=== PATIENT | female | born 1965 | race Caucasian/White ===

== ENCOUNTER 2021-04-27 17:41 | Inpatient (IN) | payer BC, OTHER ==
[2021-04-27] MEDS ORDERED: ACETAMINOPHEN 500 MG TAB PO PRN (21:07)
[2021-04-27] MEDS ORDERED: ENOXAPARIN 80 MG/0.8 ML SQ ONE ×2 (21:12→21:27)
[2021-04-27] MEDS ORDERED: ASPIRIN 81 MG CHEWABLE TABLET ONE (21:21)
[2021-04-27] MEDS ORDERED: ATORVASTATIN 20 MG TAB ONE (21:24)
[2021-04-27] MEDS ORDERED: METOPROLOL TAR 50 MG TAB ONE (21:24)
[2021-04-27] MEDS ORDERED: AMLODIPINE 5 MG TAB ONE (21:24)
[2021-04-27] MEDS ORDERED: GABAPENTIN 300 MG CAP ONE (21:25)
[2021-04-27 21:48] LABS: Absolute Lymphocytes (CBC) 3.4 K/uL (0.7-4.9); Hematocrit 40.6 % (36.0-45.0); MPV 9.9 fL (7.6-11.3); RBC Red Blood Cell Count 4.67 M/uL (3.86-4.86)
[2021-04-27 21:59] VITALS: BMI 40.1
[2021-04-27] MEDS: METOPROLOL TAR 50 MG TAB PO SCH (22:01)
[2021-04-27] MEDS: GABAPENTIN 300 MG CAP PO SCH (22:01)
[2021-04-27] MEDS: ASPIRIN 81 MG CHEWABLE TABLET PO SCH (22:01)
[2021-04-27] MEDS: ATORVASTATIN 20 MG TAB PO SCH (22:02)
[2021-04-27] MEDS: AMLODIPINE 5 MG TAB PO SCH (22:03)
[2021-04-27 22:24] LABS: ALT/SGPT 80 U/L (12-78); AST/SGOT 41 U/L (15-37); Albumin 3.7 g/dL (3.4-5.0); Alkaline Phosphatase 121 U/L (45-117); BUN Blood Urea Nitrogen 19 mg/dL (7-18); Bicarbonate 32 mmol/L (21-32); Bilirubin Total 0.6 mg/dL (0.2-1.0); Creatine Phosphokinase 60 U/L (26-192); Glucose Level 125 mg/dL (74-106); Potassium 4.2 mmol/L (3.5-5.1); Protein, Total 7.5 g/dL (6.4-8.2); Sodium Level 140 mmol/L (136-145)
[2021-04-27 22:32] LABS: CKMB Creatine Kinase MB < 1.0 ng/mL (1.0-3.6)
--- OUTSIDE RECORDS SUMMARY | 2021-04-28 01:16 | XMS REPORT | Continuity of Care Document ---
:1965 Author Organization [facility] t Address [address] [place] [address] Dr. [address] [place] [address] Care Team Providers Name Role Phone GC_SWHAWPRC_Lotze_P Attending Clinician Unavailable GC_SWHAOMC_Anding_R Attending Clinician Unavailable Antonia Gaona Attending Clinician [phone] Favio Rubin Attending Clinician [phone] Willem Eubanks Attending Clinician [phone] GC_SWHATBIC_Anding_R Attending Clinician Unavailable Lab, Fam Pob I Attending Clinician Unavailable Flory GARCÍA Attending Clinician FLORY Attending Clinician Unavailable Alfred LALA, López Attending Clinician Unavailable Only, Test Attending Clinician Unavailable Tru GARCÍA, Jim Attending Clinician TRU, Jim Attending Clinician Unavailable Doctor Unassigned, Name Attending Clinician Unavailable GC_SWHAWPRC_Lotze_P Admitting Clinician Unavailable GC_SWHAOMC_Anding_R Admitting Clinician Unavailable GC_SWHATBIC_Anding_R Admitting Clinician Unavailable Payers Payer Name Policy Type Policy Number Effective Date Expiration Date Daniel dubon [facility]: [id number] 2016 00:00:00 [facility] Problems This patient has no known problems. Allergies, Adverse Reactions, Alerts Allergy Allergy Status Severity Reaction(s) Onset Inactive Treating Comm ents Source Name Type Date Date Clinician NO KNOWN Drug Active Univers ALLERGIE Class ity [facility] Medical [place] Social History Social Habit Start Date Stop Date Quantity Comments Source Exposure to Not sure [facility] SARS-CoV-2 (event) Medica l Branch Sex Assigned At [birth year] [facility] 00:00:00 00:00:00 Medical Branch Smoking Status Start Date Stop Date Source Unknown if ever smoked [facility] Medical Branch Medications This patient has no known medications. Procedures Procedure Date / Time Performed Performing Clinician Sour e ASSIGNMENT OF BENEFITS 2020-07-11 20:28:24 Doctor Unassigned, No [facility] Name Medical Branch Encounters Start End Encounter Admission Attending Care Care Encounter Source Date/Time Date/Time Type Type Clinicians Facility Department ID 2021-04-04 2021-04-04 Outpatient GC_S[facility]AWPRC PRIV PRIV [id number] [facility] 03:07:00 03:07:00 _Lotze_P [id number] Medic al 2021-03-30 2021-03-30 Outpatient GC_[facility]AWPR[facility] PRIV PRIV [id number] [facility] 05:47:00 05:47:00 _Lotze_P [id number] Medic al 2021-03-27 2021-03-27 Outpatient GC_SWHAOMC_ PRIV PRIV [id number] [facility] 04:01:00 04:01:00 Anding_R [id number] Medic al 2021-03-26 2021-03-26 Outpatient GC_SWHAWPRC PRIV PRIV [id number] [facility] 06:02:00 06:02:00 _Lotze_P [id number] Medic al 2021-03-26 2021-03-26 Outpatient Gaona, PRIV PRIV [id number] 00:00:00 00:00:00 Zakia Antonia [id number] 2021-03-26 2021-03-26 Outpatient Gaona, PRIV PRIV [id number] 00:00:00 00:00:00 Zakia Knight [id number] 2021-03-26 2021-03-26 Outpatient Anding, PRIV PRIV [id number] 00:00:00 00:00:00 Myron [id number] Favio [id number] 2021-03-26 2021-03-26 Outpatient Lotze, PRIV PRIV [id number] 00:00:00 00:00:00 Dirk [id number] Willem [id number] 2021-03-25 2021-03-25 Outpatient GC_SWHATBIC PRIV PRIV [id number] [facility] 02:31:00 02:31:00 _Anding_R [id number] Medi laquita 2021-03-24 2021-03-24 Outpatient GC_[facility]AW[facility] PRIV PRIV [id number] [facility] 04:44:00 04:44:00 _Lotze_P [id number] Medic al 2021-03-12 2021-03-12 Outpatient GC_SWHAWPRC PRIV PRIV [id number] [facility] 04:36:00 04:36:00 _Lotze_P [id number] Medic al 2021-02-10 2021-02-10 Outpatient GC_[facility]WHAWPR[facility] PRIV PRIV [id number] [facility] 01:37:00 01:37:00 _Lotze_P [id number] Medic al 2021-02-10 2021-02-10 Outpatient GC_SWHAOMC_ PRIV PRIV [id number] [facility] 01:37:00 01:37:00 Anding_R [id number] Medic al 2021-01-31 2021-01-31 Outpatient GC_[facility]AW[facility] PRIV PRIV [id number] [facility] 03:02:00 03:02:00 _Lotze_P [id number] Medic al 2021-01-03 2021-01-03 Outpatient GC_[facility]AWPRC PRIV PRIV [id number] [facility] 02:19:00 02:19:00 _Lotze_P [id number] Medic al 2020-09-14 2020-09-14 Laboratory Lab, Adc Fam Pob I [facility] [id number] Univers 16:45:24 17:05:24 Only [id number]. 10 [facility] [id number] Pawel as Professio [phone] [address] Office [address] 2020-09-14 2020-09-14 Outpatient [facility] [id number] Univers 17:00:00 17:00:00 [id number] ity of [facility] 2020-09-14 2020-09-14 Outpatient R FLORY [facility] [id number] [facility] 17:00:00 17:00:00 , TWILA ity [facility] 2020-07-12 2020-07-12 Telephone SALOME Simon [id number] Univers 00:00:00 00:00:00 Sofia BROWNE [id number] i ty of [facility] [id number] Pawel as [phone] [facility] 019 Branch 2020-07-11 2020-07-11 Laboratory Only, Adc Test [facility] [id number] Univers 15:32:14 15:47:14 Only Lenin Ott [id number] ity of [place] [id number] [place] [facility] [phone] [facility] 353 Branch 2020-07-11 2020-07-11 Outpatient R [facility] [id number] Univers 15:30:00 15:30:00 [id number] [facility] 2020-07-11 2020-07-11 Outpatient R TRU [facility] [id number] Univers 15:30:00 15:30:00 [facility] 2020-07-11 2020-07-11 Orders Doctor SALOME [id number] Univers 00:00:00 00:00:00 Only Unassigned, PAVAN [id number] ity of [place] [facility] [id number] Pawel as [phone] [facility] 009 Branch Results This patient has no known results.
[2021-04-28 04:14] LABS: Troponin High Sensitivity 32.1 pg/mL (<58.9)
--- NOTE | 2021-04-28 07:11 | RAD REPORT ---
EXAM DESCRIPTION: RAD - Chest Pa And Lat (2 Views) - 04/27/2021 10:15 pm CLINICAL HISTORY: chest pain COMPARISON: None TECHNIQUE: Frontal and lateral views of the chest were obtained. FINDINGS: The lungs are clear. Heart size is normal and central vasculature is within normal limit s. No pleural effusion or pneumothorax seen. No acute bony finding noted. No aortic abnormality. IMPRESSION: No acute cardiopulmonary process.
--- NOTE | 2021-04-28 08:44 | EKG ---
Test Date: 2021-04-27 Test Time: 21:07:55 Hub Inventory Specialist: RT-O MEASUREMENT RESULTS: Intervals: Rate: 63 NE: 168 QRSD: 74 QT: 398 QTc: 407 [place]: P: 50 NE: 168 QRS: 32 T: 31 INTERPRETIVE STATEMENTS: Normal sinus rhythm Possible Left atrial enlargement Nonspecific T wave abnormality Abnormal ECG No previous ECG available for comparison Electronically Signed On 04-28-21 08:42:11 CDT by Elias Jim
[2021-04-28] MEDS ORDERED: REGADENOSON 0.4 MG/5 ML SYR IV ONE (08:45)
--- NOTE | 2021-04-28 11:23 | RAD REPORT ---
EXAM DESCRIPTION: NM - Rest Stress Cardiac Imaging - 04/28/2021 11:05 am CLINICAL HISTORY: Chest pain COMPARISON: None. TECHNIQUE: The patient was administered 10.9 mCi of Tc 99m Sestamibi prior to resting SPECT imaging of the heart. The patient was then administered 32.6 mCi of Tc 99m Sestamibi following exercise or ph armacologic stress. Multiplanar SPECT images were reviewed. FINDINGS: The end diastolic volume is 65 ml, the end systolic volume is 21 ml, and the ejection frac tion is 67 %. Moderately large area of significant decrease in perfusion noted in the anteroseptal left ventricular wall near the apex. The diminished activity continues into the midportion of the anterior wall and m uscular septum. No other areas of stress ischemia or scarring identifiable. IMPRESSION: Stress-induced ischemia is present in the mid and apex portion of the anteroseptal left ventricular wall. End-diastolic volume is 65 mL with a 67% ejection fraction.
[2021-04-28] MEDS ORDERED: INFLUENZA VACCINE (for 6+ mo) 0.5 ML DOSE IMVAC ONE (12:00)
[2021-04-28] MEDS: ASPIRIN 81 MG CHEWABLE TABLET PO SCH (12:01)
[2021-04-28] MEDS: GABAPENTIN 300 MG CAP PO SCH ×3 (12:01→20:28)
[2021-04-28] MEDS: AMLODIPINE 5 MG TAB PO SCH ×2 (12:02→20:28)
[2021-04-28] MEDS: METOPROLOL TAR 50 MG TAB PO SCH ×2 (12:02→20:29)
--- NOTE | 2021-04-28 13:12 | ECHO ---
HEIGHT: 5 ft 4 in WEIGHT: 234 lb 0 oz DATE OF STUDY: 04/28/[address]: Franck Ridley MD 2-DIMENSIONAL: YES M.MODE: YES DOPPLER: YES COLOR FLOW: YES TDS: NO PORTABLE: NO DEFINITY: NO BUBBLE STUDY: NO DIAGNOSIS: CHEST PAIN CARDIAC HISTORY: CATHERIZATION: NO SURGERY: NO PROSTHETIC VALVE: NO PACEMAKER: NO MEASUREMENTS (cm) DIASTOLIC (NORMALS) SYSTOLIC (NORMALS) IVSd 0.9 (0.6-1.2) LA Diam 2.9 (1.9-4.0) LVEF 70% LVIDd 3.9 (3.5-5.7) LVIDs 2.4 (2.0-3.5) %FS 39% LVPWd 1.0 (0.6-1.2) Ao Diam 2.8 (2.0-3.7) 2 DIMENSIONAL ASSESSMENT: RIGHT ATRIUM: NORMAL LEFT ATRIUM: NORMAL RIGHT VENTRICLE: NORMAL LEFT VENTRICLE: NORMAL TRICUSPID VALVE: NORMAL MITRAL VALVE: NORMAL PULMONIC VALVE: NORMAL AORTIC VALVE: NORMAL PERICARDIAL EFFUSION: NONE AORTIC ROOT: NORMAL LEFT VENTRICULAR WALL MOTION: NORMAL. DOPPLER/COLOR FLOW: NORMAL. COMMENTS: NORMAL 2D ECHO WITH DOPPLER. NO MITRAL VALVE PROLAPSE. NO EFFUSION. TECHNOLOGIST: JUAN DUDLEY
--- NOTE | 2021-04-28 13:14 | TREADPHA ---
DX: CHEST PAIN Date of Study: 04/28/21 Ht: 5' 4 " Wt: 234 lb 0 oz Consulting Physician: STEPH MEDICATIONS: LIPITOR, NORVASC, LOPRESSOR, CRESTOR. HISTORY: 55 YEAR OLD FEMALE WITH COMPLAINTS OF CHEST TIGHTNESS. HISTORY OF HIGH CHOLESTEROL, HIGH BLOOD PRESSURE. PHYSICIAL EXAMINATION: RESTING B.P.: 143/91 RESTING H.R.: 67 RESTING EKG: NORMAL PROTOCOL: LEXISCAN EXERCISE TIME: 3:30 B.P. AT PEAK STRESS: 120/48 IMPRESSION: LEXISCAN INJECTED. CARDIOLITE INJECTED (SEE NUCLEAR MEDICINE REPORT). NO COMPLAINTS OF CHEST PAIN. NO ARRHYTMIAS NOTED. NO VENTRICULAR TACHYCARDIA/ SUPRA VENTRICULAR TACHYCARDIA.
--- NOTE | 2021-04-28 14:40 | HP ---
Date of Admission: 04/27/2021 Chief Complaint: Chest pain. History Of Present Illness: This is a 55-year-old pleasant female patient, who came into office toda y with her with 5 days history of chest pain. She describes as discomfort in her neck and th roat and the way she describes as if she has an air pocket collected in that region when it moves cordelia n to her upper center chest. It has happened about 3 times in last 5 days and there is no relation w ith activity as this kind of symptoms have happened at rest or with normal day-to-day activities. No associated shortness of breath or diaphoresis, nausea, vomiting. She describes some left arm and le ft shoulder pain along with one of such episode. No palpitation. After she came into office, decisi on was made to admit her to the hospital. Allergies: NO KNOWN ALLERGIES. Medications: She takes metoprolol succinate 50 mg 2 times a day, oxybutynin 5 mg daily, rosuvastatin 10 mg daily, gabapentin 600 mg 3 times a day, vitamin D3 daily, calcium plus D daily, and cetirizine daily. Review of Systems: Cardiovascular: As mentioned above. All other systems reviewed and negative. Past Medical History: Significant for hypertension, hyperlipidemia, allergic rhinitis, peripheral ne uropathy, overactive bladder, depression. Past Surgical History: Significant for tubal ligation 2010. Family History: Father had coronary artery disease at age 62 years and diabetes. Mother alive and w ell. Brother has bipolar disorder. Sister with hyperlipidemia. Social History: Negative for smoking. Use of alcohol, occasional glass of wine. Physical Examination: Vital Signs: Blood pressure 148/90 with pulse 62, temperature 97.3, respiratory rate 15. Weight 234 .6 pounds, height 64 inches. General: Awake, alert, oriented, not in distress. HEENT: Head atraumatic, normocephalic. Conjunctivae nonerythematous. Sclerae white. Mouth, no thr ush or edema noted. Ears/Nose, no mass, lesion, discharge noted. Neck: Supple. No JVD, lymph nodes, bruit, thyromegaly noted. Lungs: Bilateral good equal air entry. Clear to auscultation. No rhonchi. No rales. Heart: Normal heart sounds, no murmur or gallop. Abdomen: Soft, bowel sounds normal. No guarding, rigidity, tenderness, mass, hepatosplenomegaly, dis tention, or bruit noted. Extremities: No leg edema. No calf tenderness. Skin: No rash, ulcer, cellulitis. Lymphatics: No lymph node enlargement in neck, supraclavicular, infraclavicular region. Neuro: No focal neurological deficit. Chest: Unremarkable. External Genitalia: Deferred. Rectal: Deferred. Laboratory Data: is negative. White count 9.3, hemoglobin 13.7, platelets 189. Sodium 1 40, potassium 4.2, chloride 107, bicarb 32, BUN 19, creatinine 1.15, glucose 125. TSH 2.05. AST 41, ALT 80, and alkaline phosphatase 121. Total bilirubin 0.6. Troponin 34.50. Impression: 1.Chest pain. 2.Abnormal liver function tests. 3.Hypertension. 4.Hyperlipidemia. 5.Allergic rhinitis. 6.Peripheral neuropathy. 7.Overactive bladder. Plan: We will plan to admit the patient to hospital to telemetry unit. We will get repeat cardiac e nzymes tomorrow morning, consult Cardiology, start the patient on aspirin 81 mg daily. Lovenox 80 mg subcu injection x1 dose will be given this evening and we will repeat troponin level along with fast ing lipid profile tomorrow morning. Home medications will be continued per order, which is metoprolo l 50 mg 2 times a day and gabapentin 600 mg 3 times a day. We will increase dose of rosuvastatin fro m 10 mg to 20 mg daily and add amlodipine 5 mg 2 times a day for blood pressure control. Echocardiog amina will be ordered for tomorrow morning and if the second troponin level comes back negative, then w e will do a Lexiscan stress test tomorrow. Details and plan of treatment discussed with the patient and her , who was with her. KRISTI/MODL Voice ID: [id number]
[2021-04-28] MEDS ORDERED: ENOXAPARIN 80 MG/0.8 ML SQ ONE (17:00)
[2021-04-28 18:45] LABS: Protime INR 0.96
[2021-04-28] MEDS: ATORVASTATIN 20 MG TAB PO SCH (20:29)
--- NOTE | 2021-04-28 23:55 | PN ---
Date of Progress Note: 04/28/2021 Subjective: Patient was seen this morning for followup, she was lying in bed, not in distress. Did not have any recurrence of chest pain or throat pain after she was admitted to the hospital. Objective: VITAL SIGNS: Reviewed. HEENT: Unremarkable. LUNGS: Clear to auscultation. HEART: Heart sounds normal. ABDOMEN: Soft, bowel sounds normal. No guarding, rigidity, tenderness, or distention. EXTREMITIES: No leg edema. Laboratory Data: Reviewed. Troponin remains normal. Stress test came back abnormal today showing r eversible perfusion defect. Impression: 1.Unstable angina. 2.Hypertension. 3.Hyperlipidemia. 4.Peripheral neuropathy. Plan: We will go ahead and continue current high-dose statin therapy. Continue amlodipine, metoprol ol, aspirin and Lovenox 80 mg subcu x1 dose was ordered this afternoon and abnormal stress test resul ts reviewed with insulation board coater operator, who is planning to do cardiac cath procedure tomorrow. I will see her tomorrow for followup. Echocardiogram done today was unremarkable. KRISTI/MODL Voice ID: [id number] Report ID: [id number]
[2021-04-29] MEDS: METOPROLOL TAR 50 MG TAB PO SCH ×2 (06:22→22:34)
[2021-04-29] MEDS: ASPIRIN 81 MG CHEWABLE TABLET PO SCH (06:23)
[2021-04-29] MEDS ORDERED: FENTANYL CITR 100 MCG/2 ML ONE (07:51)
[2021-04-29] MEDS: AMLODIPINE 5 MG TAB PO SCH ×2 (09:00→17:33)
[2021-04-29] MEDS: GABAPENTIN 300 MG CAP PO SCH ×3 (09:00→22:34)
[2021-04-29] MEDS ORDERED: NA CHLORIDE 0.9% 500 ML ONE (11:03)
[2021-04-29] MEDS ORDERED: ATROPINE SULF 1 MG/10 ML SYR IV ONE (11:04)
[2021-04-29] MEDS ORDERED: MIDAZOLAM HCL 2 MG/2 ML INJ ONE (11:08)
[2021-04-29] MEDS ORDERED: NITROGLYCERIN/D5W 25 MG/250 ML BTL IV ONE (11:09)
[2021-04-29] MEDS ORDERED: NA CHLORIDE 0.9% 50 ML ONE ×2 (11:09)
[2021-04-29] MEDS ORDERED: PRASUGREL (EFFIENT) 10 MG TAB ONE (12:01)
[2021-04-29 13:22] VITALS: O2SAT 98
[2021-04-29] MEDS ORDERED: NITROGLYCERIN 0.4 MG/TAB SL PRN (17:46)
[2021-04-29] MEDS ORDERED: ACETAMINOPHEN 325 MG TABLET PO PRN (17:48)
[2021-04-29] MEDS ORDERED: ATORVASTATIN 20 MG TAB PO SCH (21:00)
--- NOTE | 2021-04-29 23:46 | PN ---
Date of Progress Note: 04/29/2021 Subjective: Patient was seen this morning for followup, . No recurrence of chest pain or throat pain. Objective: Vital Signs: Reviewed. HEENT: Unremarkable. Lungs: Clear to auscultation. Heart: Heart sounds normal. Abdomen: Soft, bowel sounds normal. No guarding, rigidity, tenderness, or distention. Extremities: No leg edema. Impression: 1.Unstable angina. 2.Coronary artery disease with angina. 3.Hypertension. 4.Hyperlipidemia. 5.Fatty liver disease. Plan: The patient had a cardiac cath done today, after I saw her and Dr. Jim contacted and infor med me that the patient had significant stenosis of LAD and he did angioplasty and stent placement fo r this. The patient should be able to go home either later this evening or tomorrow morning. Upon d ischarge, we will discharge her on high dose statin therapy and Plavix, aspirin, and amlodipine as ne w medications with instruction to continue all previous home medications. KRISTI/MODL Voice ID: [id number] Report ID: [id number]
[2021-04-30] MEDS ORDERED: CLOPIDOGREL 75 MG TABLET PO SCH (09:00)
[2021-04-30] MEDS: GABAPENTIN 300 MG CAP PO SCH (09:20)
[2021-04-30] MEDS: METOPROLOL TAR 50 MG TAB PO SCH (09:20)
[2021-04-30] MEDS: AMLODIPINE 5 MG TAB PO SCH (09:20)
[2021-04-30] MEDS: ASPIRIN 81 MG CHEWABLE TABLET PO SCH (09:21)
[2021-04-30 09:22] VITALS: BP 135/80
[2021-04-30 09:33] VITALS: TEMP 97.3
--- NOTE | 2021-04-30 10:32 | PN ---
Date of Progress Note: 04/30/2021 Subjective: Mrs. Wilder was admitted on 04/27/2021, underwent a primary stent of the LAD on 2021. The stent was successful. She received aspirin, Effient, and Angiomax during the procedure. Today, she has no complaints. Objective: Vital signs were stable. She was afebrile. Her examination revealed normal groin withou t any hematoma. Final Impression: The patient with hypertension, diabetes, dyslipidemia, obesity, new LAD stent that was successful. She will go home on her home medication. Her Lipitor will be increased to 80 mg da cheryle. Plavix 75 mg daily was added. She will be discharged today and I will see her in the office in 2 weeks. The case was discussed with Dr. Ridley and her family. KELSY/JAZMYN Voice ID: [id number] Report ID: [id number]
--- NOTE | 2021-04-30 12:32 | CON ---
Date of Consultation: 04/28/2021 Reason For Consultation: Chest pain. History Of Present Illness: Ms. Wilder is a 55-year-old woman. Has a strong family history of hea rt disease. Has a history of diabetes, dyslipidemia, hypertension, and neuropathy. Comes in with ch est pain that she describes as feeling a bubble in her throat with and without exertion. It lasted a bout 20 to 30 minutes to some diaphoresis, but no nausea, vomiting, or shortness of breath. Denied P ND, orthopnea, pedal edema, palpitation, or syncope. So far, her EKG is unremarkable. Her chest x-r ay is negative. Her troponin is negative and she is pain-free now. Echocardiogram and Lexiscan are pending. Past Medical History: As stated above. Family History: Positive for heart disease. Allergies: NONE. Review of Systems: Negative. Social History: Negative. Medications: Include aspirin, Lipitor, metformin, Norvasc, and Neurontin. Physical Examination: Vital Signs: Stable, afebrile. General: No acute distress. HEENT: Negative. Neck: Supple with no bruit. Chest: Clear to auscultation and percussion. Cardiac: Revealed a regular rhythm and rate. No murmurs, gallops, or rubs. Abdomen: Benign. Extremities: Revealed no clubbing, cyanosis, or edema. Diagnostic Data: As stated earlier. Impression And Plan: The patient with suggestive chest pain consistent with coronary artery disease. Echocardiogram and Lexiscan are pending. She has multiple cardiac risk factors including hypertens ion, diabetes, dyslipidemia, family history, and obesity. We will see what her stress test shows and echocardiogram shows before proceeding with further workup. KELSY/JAZMYN Voice ID: [id number] Report ID: [id number]
--- NOTE | 2021-04-30 20:17 | OP ---
Date of Procedure: 04/29/2021 Surgeon: Elias Jim MD Housing Coordinator: Meagan Simon. Procedure: Left heart catheterization, selective coronary arteriogram, and primary stent of the prox imal left anterior descending. Indication: Chest pain and positive stress test. History Of Present Illness: Ms. Wilder is 55; history of hypertension, diabetes, dyslipidemia, and family history of heart disease. Came in with chest pain. The stress test showed apical ischemia, brought to the environmental laboratory technician on 04/29/2021. Procedure In Detail: In the environmental laboratory technician, she was prepped and draped in the routine sterile fashion. Gi johnathon Versed and fentanyl for sedation. 10 cc of Xylocaine was injected in the right groin. Seldinger technique was used to do the catheter to do the access in the right common femoral artery with a 6-F rench sheath. Diogenes catheter left and right were used to cannulate the left main and right main re spectively. The RCA was normal. Her circumflex was normal. Her left main was normal. She had a ve ry proximal 90% LAD stenosis and a large vessel. We decided to intervene. XBLAD 3.5 with sidehole g uide was used to cannulate the left main. A 0.014 [place] wire was used to cross the lesion. A 3.0 x 16 stent was deployed at 14 atmosphere for 30 seconds with 0% residual and excellent results. Bruno carter received Angiomax during the procedure. She received 60 of Effient after the procedure. She rece ived 325 mg of aspirin after the procedure. She tolerated the procedure well. Blood Loss: 5 mL. Complications: There were no complications. Anesthesia: Total conscious sedation was 60 minutes. Final Diagnosis: Severe coronary artery disease, 90% left main, proximal, status post successful donovan jessica stent of the left anterior descending. Patient will remain in the hospital overnight. She will be going home on the beta-blockers, aspirin. Her statin will be increased to 80 mg daily of Lipitor . The case was discussed with Dr. Ridley and her family. She will be at bedrest for 2 hours. KELSY/MODL Voice ID: [id number] Report ID: [id number]
--- NOTE | 2021-05-02 03:15 | DS ---
Date of Discharge: 04/30/2021 Disposition: Discharged to go home. Physical Examination: HEENT: Unremarkable. Lungs: Clear to auscultation. Heart: Heart sounds normal. Abdomen: Soft, bowel sounds normal. No guarding, rigidity, tenderness, or distention. Extremities: No leg edema. Laboratory Data: White count 9.3, hemoglobin 13.7, platelets 189. Sodium 140, potassium 4.2, chlori de 107, bicarb 32, BUN 19, creatinine 1.15, glucose 125, AST 41, ALT 80, alkaline phosphatase 121. T roponin 34.5 on the first set, second set 32.1. Triglyceride 158, total cholesterol 169, LDL 80, and HDL 57. TSH normal at 2.05. Hospital Course: This is 55-year-old pleasant female patient, admitted to the hospital with complain ts of chest pain. Please see dictated H and P for more information. After patient was evaluated at office, she was admitted to the hospital. Her troponin level came back normal. Echocardiogram was u nremarkable. Stress test was done, which showed evidence of reversible perfusion defect, so cardiolo gist did a heart catheterization yesterday and found significant stenosis of LAD and was able to succ essfully put a stent there. After the procedure, patient's condition has remained stable. She is as ymptomatic, feeling much better, and today she was discharged to go home in stable condition. Final Diagnoses: 1.Coronary artery disease with angina. 2.Hypertension. 3.Hyperlipidemia. 4.Non-alcoholic fatty liver disease. 5.Allergic rhinitis. 6.Peripheral neuropathy. 7.Overactive bladder. Discharge Medications And Instructions: 1.Continue all prior home medication except stop rosuvastatin 10 mg dose. 2.Start atorvastatin 80 mg 1 tablet daily at bedtime. 3.Start amlodipine 10 mg 1 tablet daily in the morning. 4.Take aspirin 81 mg daily. 5.Take clopidogrel 75 mg daily. 6.Follow up at my office next week on Tuesday or . 7.Follow up with home supervisor in 2 weeks. KRISTI/MODL Voice ID: [id number] Report ID: [id number]
== END 2021-04-30 10:00 | disposition home or self-care (01) | DRG 247 ==
LOC: 2ND 20:23
PROVIDERS: ADMIT Internal Medicine; ATTEND Internal Medicine
PROC: 027034Z Dilation of Coronary Artery, One Artery with Drug-eluting Intraluminal Device, Percutaneous Approach (ICD-10-PCS; principal; 2021-04-29)
PROC: B201YZZ Plain Radiography of Multiple Coronary Arteries using Other Contrast (ICD-10-PCS; 2021-04-29)
DX: I25.110 Atherosclerotic heart disease of native coronary artery with unstable angina pectoris (principal); Z68.41 Body mass index [BMI] 40.0-44.9, adult; I10 Essential (primary) hypertension; E78.5 Hyperlipidemia, unspecified; K76.0 Fatty (change of) liver, not elsewhere classified; J30.9 Allergic rhinitis, unspecified; G62.9 Polyneuropathy, unspecified; N32.81 Overactive bladder; F32.A Depression, unspecified; E66.9 Obesity, unspecified; Z82.49 Family history of ischemic heart disease and other diseases of the circulatory system; Z20.822 Contact with and (suspected) exposure to COVID-19
CPT/HCPCS: 36415; 71046; 78452; 80053; 80061; 82550; 82553; 84443; 84484; 85025; 85610; 85730; 92928; 93005; 93017; 93306; 93454; A9500; C1725; C1760; C1893; J0583; J2250; J2785; J3010; J7040; U0003

== ENCOUNTER 2024-05-13 09:39 | Emergency (ER) | payer BC, OTHER ==
--- NOTE | 2024-05-13 10:45 | RAD REPORT ---
EXAM: CT Head Brain Wo Cont HISTORY: [facility] COMPARISON: None TECHNIQUE: Multiple contiguous axial images were obtained for a CT of the brain without contrast. Sag ittal and coronal reformats were performed. One or more of the following dose reduction techniques were used: Automated exposure control, adjus tment of the mA and kV according to patient size, and iterative reconstruction. Unless otherwise specified, incidental findings do not require dedicated imaging follow-up. FINDINGS: No evidence of hydrocephalus, intracranial hemorrhage, or extra-axial fluid collection. The brain is normal in morphology. The calvarium is intact. The visualized paranasal sinuses and mastoid air cells are essentially clear . IMPRESSION: No evidence of acute intracranial abnormality. If there is concern for an intracranial lesion/mass implicating the cranial nerves, additional evalua tion by cranial nerve protocol MRI with contrast may be helpful.
--- NOTE | 2024-05-13 10:48 | EDPHYS ---
Physician Documentation [facility] Name: Lili Wilder Age: 58 yrs Sex: Female : 1965 Arrival Date: 05/13/2024 Time: 09:39 Bed 5 Private MD: ED Physician Carmina Ott HPI: 05/13 09:59 This 58 yrs old Female presents to ER via Ambulatory with complaints of Facial Droop. sp3 09:59 58-year-old female with history of hypertension, hyperlipidemia, prior stent placement sp3 currently on aspirin now presents to the ED with chief complaint left-sided facial droop including her forehead since yesterday evening. Patient went to urgent care this morning where she was told she had Luis's palsy but due to the headache she was also having is referred to the ED for further evaluation. Patient denies any other neurological symptoms, vision loss, trauma, or any other signs or symptoms on ROS at this time.. Historical: - Allergies: 09:43 No Known Allergies; iw - PMHx: 09:43 Hypercholesterolemia; Hypertensive disorder; iw - PSHx: 09:43 Stented artery; iw - Immunization history:: Adult Immunizations not up to date. - Infectious Disease History:: Denies. - Social history:: Smoking status: Patient denies any tobacco usage or history of. ROS: 09:59 Constitutional: Negative for fever, chills, and weight loss, Eyes: Negative for injury, sp3 pain, redness, and discharge, ENT: Negative for injury, pain, and discharge, Neck: Negative for injury, pain, and swelling, Cardiovascular: Negative for chest pain, palpitations, and edema, Respiratory: Negative for shortness of breath, cough, wheezing, and pleuritic chest pain, Abdomen/GI: Negative for abdominal pain, nausea, vomiting, diarrhea, and constipation, Back: Negative for injury and pain, MS/Extremity: Negative for injury and deformity, Skin: Negative for injury, rash, and discoloration, Psych: Negative for depression, anxiety, suicide ideation, homicidal ideation, and hallucinations, Allergy/Immunology: Negative for hives, rash, and allergies, Endocrine: Negative for neck swelling, polydipsia, polyuria, polyphagia, and marked weight changes, Hematologic/Lymphatic: Negative for swollen nodes, abnormal bleeding, and unusual bruising, 09:59 All other systems are negative, Exam: 10:00 Constitutional: This is a well developed, well nourished patient who is awake, alert, sp3 and in no acute distress. Eyes: Pupils equal round and reactive to light, extra-ocular motions intact. Lids and lashes normal. Conjunctiva and sclera are non-icteric and not injected. Cornea within normal limits. Periorbital areas with no swelling, redness, or edema. ENT: Nares patent. No nasal discharge, no septal abnormalities noted. External auditory canals are clear. Oropharynx with no redness, swelling, or masses, exudates, or evidence of obstruction, uvula midline. Mucous membranes moist. Neck: Trachea midline, no thyromegaly or masses palpated, and no cervical lymphadenopathy. Supple, full range of motion without nuchal rigidity, or vertebral point tenderness. No Meningismus. Chest/axilla: Normal chest wall appearance and motion. Nontender with no deformity. No lesions are appreciated. Cardiovascular: Regular rate and rhythm with a normal S1 and S2. No gallops, murmurs, or rubs. Normal PMI, no JVD. No pulse deficits. Respiratory: Lungs have equal breath sounds bilaterally, clear to auscultation and percussion. No rales, rhonchi or wheezes noted. No increased work of breathing, no retractions or nasal flaring. Abdomen/GI: Soft, non-tender, with normal bowel sounds. No distension or tympany. No guarding or rebound. No evidence of tenderness throughout. Back: No spinal tenderness. No costovertebral tenderness. Full range of motion. Skin: Warm, dry with normal turgor. Normal color with no rashes, no lesions, and no evidence of cellulitis. MS/ Extremity: Pulses equal, no cyanosis. Neurovascular intact. Full, normal range of motion. Psych: Awake, alert, with orientation to person, place and time. Behavior, mood, and affect are within normal limits. 10:00 Neuro: Left-sided facial droop noted which includes forehead. No other neurological abnormalities on full clinical exam including gait., Vital Signs: 09:43 BP 180 / 100; Pulse 53; Resp 16; Temp 97.9; Pulse Ox 100% on R/A; Weight 93.89 kg; iw Height 5 ft. 4 in. ; 09:45 BP 150 / 91; Pulse 56; iw 10:59 BP 132 / 78; Pulse 56; Resp 18; Temp 98; Pulse Ox 98% on R/A; ph 09:43 Body Mass Index 35.53 (93.89 kg, 162.56 cm) iw MDM: 09:45 Medical Screening Exam initiated sp3 10:00 Data reviewed: vital signs, nurses notes, radiologic studies. ED course: 58-year-old sp3 female with left-sided facial droop and mild headache. Differential diagnosis includes Luis's palsy, intracranial pathology/mass, anterior lesser degree CVA/TIA spectrum. I am not highly suspicious of the latter. Will obtain CT scan of the head and if negative treat with valacyclovir, prednisone and Lacri-Lube. Follow-up with neurology and PCP.. 10:47 ED course: CT scan negative. Will safely discharge patient home at this time.. sp3 05/13 09:49 Order name: CT Head Brain wo Cont; Complete Time: 10:46 sp3 Administered Medications: No medications were administered Disposition Summary: 05/13/24 10:47 Discharge Ordered Notes: Location: Home sp3 Condition: Stable sp3 Diagnosis - Luis's palsy sp3 Followup: sp3 - With: Private Physician - When: Upon discharge from the Emergency Department - Reason: Continuance of care Discharge Instructions: - Discharge Summary Sheet sp3 - Luis's Palsy, Adult sp3 Forms: - Medication Reconciliation Form sp3 - Antibiotic Education sp3 - Prescription Opioid Use sp3 - Patient Portal Instructions sp3 - Leadership Thank You Letter sp3 Prescriptions: - Valtrex 1 gram Oral tablet - take 1 tablet ORAL route every 12 hours; 20 tablet; Refills: 0, Product sp3 Selection Permitted - Refresh Lacri-Lube 56.8-42.5 % Ophthalmic ointment - instill 1 application OPHTHALMIC route every evening; 30 application; Refills: sp3 0, Product Selection Permitted - Prednisone 20 mg Oral tablet - take 3 tablets ORAL route once daily for 7 days; 21 tablet; Refills: 0, Product sp3 Selection Permitted Signatures: Dispatcher [employer] Camila Butterfield RN RN iw Patel, Setul, MD MD sp3 Corrections: (The following items were deleted from the chart) 09:44 09:43 Home Meds: stent; iw iw
--- NOTE | 2024-05-13 10:48 | ER ---
Nurse's Notes [facility] Name: Lili Wilder Age: 58 yrs Sex: Female : 1965 Arrival Date: 05/13/2024 Time: 09:39 Bed 5 Private MD: Diagnosis: Luis's palsy Presentation: 05/13 09:41 Chief complaint: Patient states: this morning she noticed the left side of her face had iw droop and her left eyelid was not closing at the same time as her right eyelid, she noticed yesterday that when she rinsed her mouth out the water shot out of the left side of her mouth. Coronavirus screen: At this time, the client does not indicate any symptoms associated with coronavirus-19. Ebola Screen: No symptoms or risks identified at this time. 09:41 Method Of Arrival: Ambulatory iw 09:43 Initial Sepsis Screen: Does the patient meet any 2 criteria? No. Patient's initial iw sepsis screen is negative. Does the patient have a suspected source of infection? No. Patient's initial sepsis screen is negative. Risk Assessment: Do you want to hurt yourself or someone else? Patient reports no desire to harm self or others. 09:43 Acuity: MAIK 3 iw 09:43 Onset of symptoms was May 12, 2024. iw Historical: - Allergies: 09:43 No Known Allergies; iw - PMHx: 09:43 Hypercholesterolemia; Hypertensive disorder; iw - PSHx: 09:43 Stented artery; iw - Immunization history:: Adult Immunizations not up to date. - Infectious Disease History:: Denies. - Social history:: Smoking status: Patient denies any tobacco usage or history of. Screenin:58 [facility] ED Fall Risk Assessment (Adult) History of falling in the last 3 months, ph including since admission No falls in past 3 months (0 pts) Confusion or Disorientation No (0 pts) Intoxicated or Sedated No (0 pts) Impaired Gait No (0 pts) Mobility Assist Device Used No (0 pt) Altered Elimination No (0 pt) Score/Fall Risk Level 0 - 2 = Low Risk Oriented to surroundings, Maintained a safe environment, Hourly rounding (assess needs \T\ fall precautionary measures) done. Abuse screen: Denies threats or abuse. Denies injuries from another. Nutritional screening: No deficits noted. Tuberculosis screening: No symptoms or risk factors identified. Assessment: 10:57 General: Appears in no apparent distress. comfortable, well groomed, Behavior is calm, ph cooperative, appropriate for age. Pain: Denies pain. Neuro: Level of Consciousness is awake, alert, obeys commands, Oriented to person, place, time, situation, Director Emergency Department are equal bilaterally Moves all extremities. Full function Gait is steady, Speech is normal, Facial droop on left, Pupils are PERRLA, Intact. Cardiovascular: Capillary refill < 3 seconds in bilateral fingers Patient's skin is warm and dry. Respiratory: Airway is patent Respiratory effort is even, unlabored, Respiratory pattern is regular, symmetrical. Derm: Skin is intact, is healthy with good turgor, Skin is pink, warm \T\ dry. Musculoskeletal: Circulation, motion, and sensation intact. Range of motion: intact in all extremities. Vital Signs: 09:43 BP 180 / 100; Pulse 53; Resp 16; Temp 97.9; Pulse Ox 100% on R/A; Weight 93.89 kg; iw Height 5 ft. 4 in. ; 09:45 BP 150 / 91; Pulse 56; iw 10:59 BP 132 / 78; Pulse 56; Resp 18; Temp 98; Pulse Ox 98% on R/A; ph 09:43 Body Mass Index 35.53 (93.89 kg, 162.56 cm) iw ED Course: 09:40 Patient arrived in ED. mr 09:41 Carmina Ott MD is Attending Physician. sp3 09:43 Triage completed. iw 09:44 Arm band placed on. iw 10:05 CT Head Brain wo Cont In Process Unspecified. EDMS 10:58 Patient has correct armband on for positive identification. Call light in reach. Side ph rails up X 1. Door closed. Noise minimized. 10:59 No provider procedures requiring assistance completed. Patient did not have IV access ph during this emergency room visit. Administered Medications: No medications were administered Medication: 10:58 VIS not applicable for this client. ph Outcome: 10:47 Discharge ordered by . sp3 10:59 Discharged to home ambulatory, with family, ph 10:59 Condition: good 10:59 Discharge instructions given to patient, family, Instructed on discharge instructions, follow up and referral plans. medication usage, Demonstrated understanding of instructions, follow-up care, medications, Prescriptions given X 3, 11:00 Patient left the ED. ph Signatures: Dispatcher [employer] EDMS Kathe Villarreal, Reg Reg mr Camila Camara, SPIKE RN iw Bailey Yin RN RN Carmina Ott MD MD sp3 Corrections: (The following items were deleted from the chart) 09:44 09:43 Home Meds: stent; iw iw 09:45 09:43 BP 180 / 100; Pulse 53bpm; Resp 16bpm; Pulse Ox 100% RA; Temp 97.9F; iw
[2024-05-13 11:06] VITALS: BP 132/78; TEMP 98; O2SAT 98
== END 2024-05-13 11:00 | disposition home or self-care (01) ==
LOC: ER 09:39
DX: G51.0 Bell's palsy (principal); I10 Essential (primary) hypertension; E78.00 Pure hypercholesterolemia, unspecified
CPT/HCPCS: 70450; 99283